=== PATIENT | male | born 1970 | race Hispanic/Latino ===

== ENCOUNTER → 2018-04-09 | Day surgery (SDC) | payer BC ==
[2018-03-24 10:27] LABS: BASOPHILS # (AUTO) 0.1 (0.0-0.1); BASOPHILS % 0.7 % (0.0-1.0); EOSINOPHILS # (AUTO) 0.4 (0.0-0.4); EOSINOPHILS % 4.4 % (0.0-6.0); HEMATOCRIT 43.8 % (38.2-49.6); LYMPHOCYTES # (AUTO) 2.6 (1.0-3.2); LYMPHOCYTES % 32.6 % (18.0-39.1); MEAN CORPUSCULAR HEMOGLOBIN 32.4 pg (28-32); MEAN CORPUSCULAR HGB CONC 34.2 g/dL (31-35); MEAN CORPUSCULAR VOLUME 94.6 fL (81-99); MONOCYTES # (AUTO) 0.6 (0.2-0.8); MONOCYTES % 7.7 % (4.4-11.3); NEUTROPHILS # (AUTO) 4.4 (2.1-6.9); NEUTROPHILS % 54.4 % (38.7-80.0); PLATELET COUNT 205 x10e3/uL (140-360); RED BLOOD COUNT 4.63 x10e6/uL (4.3-5.7); RED CELL DISTRIBUTION WIDTH 12.3 % (11.7-14.4)
[2018-03-24 10:49] LABS: ANION GAP 11.3 mmol/L (8-16); BLOOD UREA NITROGEN 17 mg/dL (7-26); BUN/CREATININE RATIO 17 (6-25); CALCIUM 9.9 mg/dL (8.4-10.2); CARBON DIOXIDE 27 mmol/L (22-29); CHLORIDE 108 mmol/L (98-107); CREATININE, SERUM 0.98 mg/dL (0.72-1.25); EST GLOMERULAR FILTRATION RATE > 60 ML/MIN (60-); GLUCOSE 109 mg/dL (74-118); POTASSIUM 4.3 mmol/L (3.5-5.1); SODIUM 142 mmol/L (136-145)
[~2018-04-09] MED LIST: BUPIVACAINE 0.25%/EPI 30ML SDV INJ ONE; DEXAMETHASONE SOD PHOS INJ 4 MG/ML VIAL ONE; FENTANYL CITRATE/PF 100MCG/2 ML INJ ONE; FISH OIL 1,0001 EAC3 PO; GLYCOPYRROLATE INJ 1MG/ 5 ML SYR ONE; KETOROLAC TROMETHAMINE 30 MG/ML VIAL ONE; LIDOCAINE HCL 2% LOCAL INJ 5 ML SDV VIAL INJ ONE; MIDAZOLAM HCL 2 MG/2 ML VIAL ONE; NEOSTIGMINE 5 MG/5ML SYR ONE; ONDANSETRON HCL INJ 2 MG/ML VIAL ONE; PROPOFOL IV EMULSION 10 MG/ML 20 ML VIAL ONE; ROCURONIUM BROMIDE 10 MG/ML 5ML VIAL ONE; SEVOFLURANE INHAL SOLN 250 ML PEN BTL ONE; [UNRECOGNIZED DRUG - OTHER] PO
--- NOTE | 2018-04-09 10:12 | Operative Report ---
DATE OF PROCEDURE: April 09, 2018 PREOPERATIVE DIAGNOSIS: Mass in the posterior neck. POSTOPERATIVE DIAGNOSIS: Mass in the posterior neck. OPERATION PERFORMED: Excision of mass of the posterior neck. ANESTHESIA: General. COMPLICATIONS: None. ESTIMATED BLOOD LOSS: Minimal. DESCRIPTION OF PROCEDURE: With the patient lying in bed in the supine position, under good general anesthesia, the patient was then flipped to the prone position, and the back of the neck was prepped with Betadine solution and draped in the usual manner. An incision was then made at the base of the neck and carried down through the subcutaneous tissue and through the superficial fascia. Immediately a well-encapsulated, multilobulated mass was encountered consistent with a large lipoma, which was stuck to the fascia inferiorly and into the muscles laterally on both sides. This mass was slowly and carefully then from all of the muscles and resected off of the fascia and sent for pathological examination. The whole area was thoroughly irrigated. Perfect hemostasis was ascertained. The layers were infiltrated on the way out with a solution of 1/4 percent Marcaine. The wound was then closed in layers. Subcutaneous tissue and superficial fascia were approximated with 2-0 Vicryl, and the skin was closed with interrupted vertical mattress sutures of 3-0 silk. A dressing was applied. The sponge, lap and needle count was correct. Patient tolerated the procedure well and returned to the recovery room in stable condition. Job#: [id number]
[2018-04-09] MEDS: FENTANYL CITRATE/PF 100MCG/2 ML INJ ONE (10:34)
== END | disposition home or self-care (01) ==
LOC: DX 03-24 12:33 → OR 05:18 → EDSTATUS 07:30
PROVIDERS: ATTEND Surgery
DX: D17.0 Benign lipomatous neoplasm of skin and subcutaneous tissue of head, face and neck (principal); Z01.810 Encounter for preprocedural cardiovascular examination; Z01.812 Encounter for preprocedural laboratory examination
CPT/HCPCS: 36415; 80048; 85025; 88304; 93005; J1100; J1885; J2001; J2250; J2405